=== PATIENT | male | born 1975 | race Caucasian/White ===

== ENCOUNTER 2018-10-14 21:42 | Emergency (ER) | payer SELFPAY ==
[~2018-10-14] VITALS: Ht 177.8 cm; Wt 77.1 kg
[2018-10-14 23:56] VITALS: BP 147/86
== END 2018-10-15 03:34 | disposition left against medical advice (07) ==
LOC: ER 21:42
DX: Z53.21 Procedure and treatment not carried out due to patient leaving prior to being seen by health care provider (principal)